=== PATIENT | male | born 2005 | race Caucasian/White ===

== ENCOUNTER 2025-03-20 15:17 | Outpatient (CLI) | payer OTHER, SELFPAY ==
[2025-03-20 22:55] LABS: Chlamydia DNA Amplified* NOT DETECTED (No Detected); GC DNA Amplified* NOT DETECTED (No Detected)
== END 2025-03-20 15:18 | disposition home or self-care (01) ==
LOC: NFLDUCREF 15:18
PROVIDERS: Visit Provider Nurse Practitioner Family
DX: R30.0 Dysuria (principal)
CPT/HCPCS: 87086; 87491; 87591